=== PATIENT | male | born 1965 | race Caucasian/White ===

== ENCOUNTER 2023-11-03 10:30 | Outpatient (CLI) | payer OTHER, SELFPAY ==
--- NOTE | 2023-11-03 10:44 | XRR_ITS ---
PROCEDURE INFORMATION: Exam: XR Right Calcaneus Exam date and time: 11/03/2023 10:51 AM Age: 58 years old Clinical indication: Pain; Heel; Right; Additional info: Pain in R heel/pain in R foot TECHNIQUE: Imaging protocol: Radiologic exam of the right calcaneus. Views: 2 or more views. COMPARISON: No relevant prior studies available. FINDINGS: Bones/joints: Very tiny right inferior calcaneal spur. Otherwise, unremarkable. Soft tissues: Normal. XR/XR calcaneus RT min 2V [id number] IMPRESSION: Very tiny inferior calcaneal spur. Otherwise, negative right calcaneus.
== END 2023-11-03 10:31 | disposition home or self-care (01) ==
LOC: RAD 10:35
PROVIDERS: PCP Nurse Practitioner Family; Visit Provider Nurse Practitioner Family
DX: M79.671 Pain in right foot (principal); M77.31 Calcaneal spur, right foot
CPT/HCPCS: 73650